=== PATIENT | male | born 1965 | race Caucasian/White ===

== ENCOUNTER 2018-08-09 13:14 | Outpatient (CLI) | payer OTHER ==
[2018-08-09 14:07] LABS: #Basophils 0.1 thou/uL (0.0-0.2); #Eosinphils 0.4 thou/uL (0.0-0.7); #Lymphocytes 2.2 thou/uL (1.20-3.40); #Monocytes 0.4 thou/uL (0.11-0.59); #Neutrophils 4.1 thou/uL (1.40-6.50); %Basophils 1.2 % (0.0-1.0); %Eosinophils 5.2 % (0.0-10.0); %Lymphocytes 30.6 % (21.0-51.0); %Monocytes 5.2 % (0.0-10.0); %Neutrophils 57.7 % (42.0-75.0); Hemoglobin 16.5 g/dL (14.0-18.0); Mean Corpuscular HGB CONC 33.8 g/dL (32.0-36.0); Mean Corpuscular Hemoglobin 32.2 pg (27.0-31.0); Mean Corpuscular Volume 95.2 fL (78.0-98.0); Mean Platelet Volume 7.3 fL (7.4-10.4); Platelet Count 307 thou/uL (130-400); RBC Distribution Width 11.5 % (11.5-14.5); Red Blood Cell (RBC) Count 5.13 mill/uL (4.70-6.10); White Blood Cell (WBC) Count 7.1 thou/uL (4.8-10.8)
[2018-08-09 14:29] LABS: Anion Gap 12 mmol/L (10-20); BUN (Urea Nitrogen) 16 mg/dL (8.4-25.7); Calc. Creatinine Clearance 0 mL/min (70-130); Calcium 9.5 mg/dL (7.8-10.44); Carbon Dioxide 25 mmol/L (22-29); Chloride 106 mmol/L (98-107); Estimated GFR-MDRD 86; Glucose 109 mg/dL (70-105); Sodium 139 mmol/L (136-145)
--- NOTE | 2018-08-10 07:49 | EKG ---
Test Reason : Blood Pressure : / mmHG Vent. Rate : 064 BPM Atrial Rate : 064 BPM P-R Int : 174 ms QRS Dur : 120 ms QT Int : 410 ms P-R-T Axes : 045 -08 014 degrees QTc Int : 422 ms Normal sinus rhythm Left ventricular hypertrophy with QRS widening Early repolarization Abnormal ECG When compared with ECG of 24-OCT-2008 14:19, No significant change was found Confirmed by DR. Shaheed CAMACHO ([id number]) on 08/10/2018 7:48:47 AM Referred By: LAVERN Confirmed By:DR. Shaheed CAMACHO
== END 2018-08-09 13:15 | disposition home or self-care (01) ==
LOC: LABBT 13:14
PROVIDERS: ATTEND Orthopaedic Surgery
DX: Z01.818 Encounter for other preprocedural examination (principal); S83.242D Other tear of medial meniscus, current injury, left knee, subsequent encounter
CPT/HCPCS: 80048; 85025; 93005; 93010

== ENCOUNTER 2018-08-10 05:57 | Day surgery (SDC) | payer OTHER ==
[2018-08-09 13:32] VITALS: BMI 34.5
[2018-08-10] MEDS ORDERED: PROPOFOL 20 ML ONE (06:35)
[2018-08-10] MEDS ORDERED: CEFAZOLIN 2 GM/50 ML BAG ONE (06:42)
--- NOTE | 2018-08-10 09:13 | OP ---
DATE OF PROCEDURE: 08/10/2018 PREOPERATIVE DIAGNOSIS: Medial meniscus tear, left knee. POSTOPERATIVE DIAGNOSIS: Medial meniscus tear, left knee. SURGICAL PROCEDURES: Arthroscopic partial medial meniscectomy. SURGEON: Evan Schreiber M.D. ANESTHESIA: General. BLOOD LOSS: Minimal. SPECIMEN: None. DRAINS: None. COMPLICATIONS: None. TOURNIQUET TIME: Zero. PROCEDURE IN DETAIL: The patient was taken to the operating where general anesthesia was induced. L eft leg was prepped and draped in the usual sterile fashion. Scope was placed in the lateral portal and probe was placed in the medial portal. He had some patellofemoral chondromalacia, which I debrid ed. He had a small area of grade III chondromalacia on his medial tibia and grade II chondromalacia on the medial femoral condyle, otherwise not much arthritis in the knee. I debrided most of his post erior horn of his medial meniscus using basket forceps and then smoothed using a 4-0 full radius rese ctor. I probed the meniscus and confirmed it is stable. Intercondylar notch was examined and the AC L was intact. He did have a little bone spur in the intercondylar notch. I left this alone. Latera l compartment was completely free of disease. The knee was drained. Sterile dressings applied.
== END 2018-08-10 10:10 | disposition home or self-care (01) ==
LOC: SDC 05:57
PROVIDERS: ATTEND Orthopaedic Surgery
PROC: 0SBD4ZZ Excision of Left Knee Joint, Percutaneous Endoscopic Approach (ICD-10-PCS; principal; 2018-08-10)
DX: S83.242A Other tear of medial meniscus, current injury, left knee, initial encounter (principal); M22.42 Chondromalacia patellae, left knee; E78.00 Pure hypercholesterolemia, unspecified; G43.909 Migraine, unspecified, not intractable, without status migrainosus; I10 Essential (primary) hypertension; Z79.899 Other long term (current) drug therapy; Z98.1 Arthrodesis status; Z98.890 Other specified postprocedural states
CPT/HCPCS: G8978-GP-CJ; G8979-GP-CJ; G8980-GP-CJ; J0131; J2704

== ENCOUNTER 2018-11-13 07:25 | Outpatient (CLI) | payer BC ==
[2018-11-13 08:18] LABS: Estimated GFR-MDRD - POC Greater than 90
--- NOTE | 2018-11-13 09:42 | CT ---
CT CERVICAL SPINE: HISTORY: Radiculopathy. FINDINGS: Noncontrast enhanced CT images cervical spine obtained. Sagittal and coronal reconstruction images p erformed. CT images demonstrate ACDF with fusion of the C5, 6, and 7 vertebrae using ACDF plates and screws. P lates and screws are in good position without evidence of loosening. There is severe disk space height loss with end plate irregularity and end plate cysts at the C3-4 le nayely. There is disk space height loss with anterior and posterior osteophytes which extend into the n eural foramen resulting in mild bilateral C3-4 neural foraminal narrowing. There is some heterogenei ty seen in the right thyroid lobe. This may represent a right thyroid lobe mass. Correlate with jillian ctive sonography. IMPRESSION: 1. C5, 6, and 7 anterior cervical diskectomy and fusion. 2. Changes of spondylosis at C3-4. POS: [facility]
--- NOTE | 2018-11-13 11:12 | MRI ---
MRI CERVICAL SPINE WITH AND WITHOUT CONTRAST: Technique: Multiplanar, multisequence MRI images were obtained of the cervical spine. History: Neck pain. Cervical radiculopathy. Radiation to right upper extremity. Prior fusion procedur e, 2009. Comparison: MRI cervical spine, November 2011, CT cervical spine, 11-13-18. FINDINGS: Post-operative changes are noted with prior anterior fusion procedure. Anterior plate and screws aiken sfix C5-6, and C6-7 with interbody implants at these levels. Hypertrophic changes are more apparent o n the recent CT of 11-13-18. There are degenerative disc changes prominent at C3-4 with loss of disc space and hypertrophic change . Loss of disc space at C7-T1. C3-4: Degenerative disc changes are prominent with posterior disc bulge and spondylosis impinging on the cord. Prominent spondolytic changes are seen to the left with prominent uncinate hypertrophy impi nging on the anterior cord on the left and encroaching into the left foramina. These changes are appa rent on recent CT. C4-5: Disc space is preserved without significant spondylosis or disc bulge. C5-6 and C6-7: Post op fusion changes. Mild spondylosis at these levels, however, the subarachnoid sp aces are preserved at these levels. Mild left foraminal narrowing due to uncinate hypertrophy a C5-6. Foramina at C6-7 are patent. C7-T1: Minimal disc bulge and spondylosis. Anterior subarachnoid space is preserved. Cord signal is normal. IMPRESSION: 1. Post-operative and degenerative change of the cervical spine noted. Degenerative disc changes are prominent at C3-4 with posterior disc bulge and spondylosis at this level. These changes are prominen t to the left as described above. 2. Post-operative change at C5-6 and C6-7 noted as described. POS: [facility]
--- NOTE | 2018-11-13 11:13 | RAD ---
FIVE VIEWS CERVICAL SPINE: Technique: AP, lateral, flexion, extension and open mouth views obtained. FINDINGS: ACDF with fusion of the C5, C6, and C7 vertebra. Plates and screws in good position. Disc space heigh t loss with anterior and posterior osteophytes seen compatible with changes of spondylosis at C3-4. IMPRESSION: Lower cervical ACDF with C3-4 changes of spondylolisthesis. POS: [facility]
[2018-11-13] MEDS ORDERED: Gadobenate Dimeglumine 529 MG/1 ML (20ML VIAL) ONE (13:16)
== END 2018-11-13 07:26 | disposition home or self-care (01) ==
LOC: BICCT 07:25
PROVIDERS: ATTEND Surgery
DX: M47.22 Other spondylosis with radiculopathy, cervical region (principal); M54.2 Cervicalgia; M43.12 Spondylolisthesis, cervical region; M50.11 Cervical disc disorder with radiculopathy, high cervical region; Z98.1 Arthrodesis status
CPT/HCPCS: 72050; 72125; 72156; 82565; A9577